=== PATIENT | male | born 1965 | race Caucasian/White ===

== ENCOUNTER 2020-09-08 10:51 | Emergency (ER) | payer OTHER ==
[2020-09-08] MEDS ORDERED: ACETAMINOPHEN WITH CODEINE #3 TABLET PO ONE ×2 (11:54→16:54)
--- NOTE | 2020-09-08 11:56 | ER Document Report ---
ED Fall - General Stated Complaint: FALL,BACK PAIN Time Seen by Provider: 09/08/20 11:42 Primary Care Provider: [facility] [Provider Group] - Follow up as needed [facility] [Provider Group] - Follow up as needed Mode of Arrival: Medic Information source: Patient Notes: Patient states that he was stepping up onto the back of a truck and fell off of the truck landing on the tongue of the trailer. Patient with thoracic back pain. Patient denies any head injury or loss of consciousness. Patient denies any nausea or vomiting. - HPI Occurred: Just prior to arrival Where: Outdoors Context: Slipped Associated symptoms: None Location of injury/pain: Back Quality of pain: Sharp Pain Level: 5 - Related data Allergies/Adverse Reactions: Opioids - Morphine Analogues Allergy (Verified 09/08/20 16:50) Past Medical History - General Information source: Patient - Social History Smoking Status: Current Every Day Smoker Frequency of alcohol use: None Drug Abuse: None Occupation: construction Lives with: Spouse/Significant other Family History: Reviewed & Not Pertinent - Past Medical History Cardiac Medical History: Reports: Hx Hypertension Musculoskeletal Medical History: Reports Hx Arthritis Surgical Hx: Negative Review of Systems - Review of Systems Constitutional: No symptoms reported. denies: Fever EENT: No symptoms reported Cardiovascular: No symptoms reported. denies: Chest pain, Dizziness, Lightheaded Respiratory: No symptoms reported. denies: Cough, Short of breath Gastrointestinal: No symptoms reported. denies: Abdominal pain, Nausea, Vomiting Genitourinary: No symptoms reported Male Genitourinary: No symptoms reported Musculoskeletal: Back pain, Muscle pain Skin: No symptoms reported Hematologic/Lymphatic: No symptoms reported Neurological/Psychological: No symptoms reported Physical Exam - Vital signs Vitals: Temp Pulse BP Pulse Ox 98.0 F 63 124/68 96 09/08/20 11:17 09/08/20 11:17 09/08/20 11:17 09/08/20 11:17 - General General appearance: Appears well, Alert In distress: Mild - HEENT Head: Normocephalic, Atraumatic Eyes: Normal Conjunctiva: Normal Ears: Normal Nasal: Normal Mouth/Lips: Normal Neck: Normal, Supple. No: Lymphadenopathy Notes: No midline tenderness, step-off or deformity - Respiratory Respiratory status: No respiratory distress Chest status: Pain with deep breathing Breath sounds: Normal. No: Rales, Rhonchi, Stridor Chest palpation: Normal - Cardiovascular Rhythm: Regular Heart sounds: S1 appreciated, S2 appreciated - Abdominal Inspection: Normal Distension: No distension Tenderness: Nontender - Back Back: Tender - Left thoracic paraspinal tenderness, Vertebra tenderness - Thoracic tenderness T7-12 area. No: Deformity/step-off, CVA tenderness - Extremities General upper extremity: Normal inspection, Normal ROM General lower extremity: Normal inspection, Normal ROM - Neurological Neuro grossly intact: Yes Cognition: Normal Elmer Coma Scale Eye Opening: Spontaneous Shira Coma Scale Verbal: Oriented Shira Coma Scale Motor: Obeys Commands Elmer Coma Scale Total: 15 - Psychological Associated symptoms: Normal affect, Normal mood - Skin Skin Temperature: Warm Skin Moisture: Dry Skin Color: Normal Course - Re-evaluation Re-evalutation: 09/08/20 14:[address] scan reviewed, patient with mild superior endplate compression at T7 that does not appear to be acute. Patient does acknowledge a long history of ch ronic back pain. Consulted with Dr. Barrientos who did evaluate patient, recommends note for patient's job, pain control and outpatient follow-up with orthopedic spinal specialist for further management of his chronic back issues. No additional testing advised at this time. The patient presents with back pain without signs of spinal cord compression, cauda equina syndrome, infection, aneurysm, or other serious etiology. The patient is neurologically intact. Given the extremely risk of these diagnoses further testing and evaluation for these possibilities does not appear to be indicated at this time. Patient has been instructed to return if the symptoms worsen or change in any way. - Vital Signs Vital signs: Temp Pulse Resp BP Pulse Ox 98.0 F 63 124/68 96 09/08/20 11:17 09/08/20 11:17 09/08/20 11:17 09/08/20 11:17 - Laboratory Result Diagrams: 09/08/20 12:19 09/08/20 12:19 Laboratory results interpreted by me: 09/08/20 09/08/20 12:19 12:19 RBC 4.28 L Potassium 5.2 H Labs- All tests 24 hr 09/08/20 09/08/20 12:19 12:19 WBC 7.6 RBC 4.28 L Hgb 14.2 Hct 41.3 MCV 96 MCH 33.2 MCHC 34.4 RDW 12.6 Plt Count 186 Lymph % (Auto) 25.0 Casey % (Auto) 6.7 Eos % (Auto) 2.4 Baso % (Auto) 1.0 Absolute Neuts (auto) 4.9 Absolute Lymphs (auto) 1.9 Absolute Monos (auto) 0.5 Absolute Eos (auto) 0.2 Absolute Basos (auto) 0.1 Seg Neutrophils % 64.9 Sodium 138.6 Potassium 5.2 H Chloride 105 Carbon Dioxide 26 Anion Gap 8 BUN 19 Creatinine 0.77 Est GFR ( Amer) > 60 Est GFR (MDRD) Non-Af > 60 Glucose 103 Calcium 9.6 - Diagnostic Test Radiology reviewed: Reports reviewed Discharge - Discharge Clinical Impression: Upper back pain on left side Fall Qualifiers: Encounter type: initial encounter Qualified Code(s): W19.XXXA - Unspecified fall, initial encounter Condition: Stable Disposition: HOME, SELF-CARE Instructions: Chronic Back Pain ([facility]), Ice Packs ([facility]), Oral Narcotic Medication ([facility]), Upper Back Strain ([facility]) Additional Instructions: Return immediately for any new or worsening symptoms Followup with your primary care provider, call tomorrow to make a followup appointment Follow-up with orthopedic spinal specialist for further evaluation. You may need follow-up with pain management Prescriptions: Acetaminophen with Codeine [Tylenol #3 Tablet] 1 each PO Q6HP PRN #15 tablet PRN Reason: Lidocaine [Lidoderm 5% (700 mg) Transdermal Patch] 1 patch TP DAILY PRN #10 adh..patch PRN Reason: Methocarbamol [Robaxin 500 Mg Tablet] 500 mg PO QID PRN #30 tablet PRN Reason: Forms: Return to Work Referrals: [facility] [Provider Group] - Follow up as needed [facility] [Provider Group] - Follow up as needed
[2020-09-08 12:41] LABS: ABSOLUTE BASOPHILS # (AUTO) 0.1 10^3/uL (0.0-0.2); ABSOLUTE EOSINOPHILS # (AUTO) 0.2 10^3/uL (0.0-0.6); ABSOLUTE LYMPHOCYTES (AUTO) 1.9 10^3/uL (0.5-4.7); ABSOLUTE MONOCYTES (AUTO) 0.5 10^3/uL (0.1-1.4); ABSOLUTE NEUT (AUTO) 4.9 10^3/uL (1.7-8.2); EOSINOPHILS % (AUTO) 2.4 % (0-6); HEMATOCRIT 41.3 % (37.9-51.0); HEMOGLOBIN 14.2 g/dL (13.5-17.0); MEAN CORPUSCULAR HEMOGLOBIN 33.2 pg (27.0-33.4); MEAN CORPUSCULAR HGB CONC 34.4 g/dL (32.0-36.0); MEAN CORPUSCULAR VOLUME 96 fl (80-97); MONOCYTES % (AUTO) 6.7 % (3-13); PLATELET COUNT 186 10^3/uL (150-450); RED BLOOD COUNT 4.28 10^6/uL (4.35-5.55); RED CELL DISTRIBUTION WIDTH 12.6 % (11.5-14.0); SEGMENTED NEUTROPHILS % (AUTO) 64.9 % (42-78); TOTAL CELLS COUNTED % (AUTO) 100 %; WHITE BLOOD COUNT 7.6 10^3/uL (4.0-10.5)
[2020-09-08 13:02] LABS: ANION GAP 8 (5-19); BLOOD UREA NITROGEN 19 mg/dL (7-20); CALCIUM 9.6 mg/dL (8.4-10.2); CARBON DIOXIDE 26 mmol/L (22-30); CHLORIDE 105 mmol/L (98-107); GLUCOSE 103 mg/dL (75-110); POTASSIUM 5.2 mmol/L (3.6-5.0)
--- NOTE | 2020-09-08 14:01 | RADIOLOGY REPORT (SQ) ---
EXAM DESCRIPTION: CT CHEST WITH IMAGES COMPLETED DATE/TIME: 09/08/2020 1:45 pm REASON FOR STUDY: fall off truck, thoracic back pain, L post rib ara COMPARISON: None. TECHNIQUE: CT scan of the chest performed using helical scanning technique with dynamic intravenous contrast injection. Images reviewed with lung, soft tissue and bone windows. Reconstructed coronal and sagittal MPR and MIP images reviewed. All images stored on PACS. All CT scanners at this facility use dose modulation, iterative reconstruction, and/or weight based d osing when appropriate to reduce radiation dose to as low as reasonably achievable (ALARA). [facility]: Dose Right [facility]: CareDose [facility]: Dose Right [facility]: Teradose 4D [facility]: [employer] CONTRAST TYPE AND DOSE: contrast/concentration: Isovue 350.00 mmol/ml; Total Contrast Delivered: 80. 0 ml; Total Saline Delivered: 38.3 ml RENAL FUNCTION: Not recorded here. Refer to the technologist's notes. RADIATION DOSE: CT Rad equipment meets quality standard of care and radiation dose reduction techniq ues were employed. CTDIvol: 16.4 mGy. DLP: 716 mGy-cm. . LIMITATIONS: None. FINDINGS: LUNGS AND PLEURA: There are some small emphysematous blebs in the upper lobes. No pneumot horax. No acute infiltrate or effusion. HILAR AND MEDIASTINAL STRUCTURES: No identified masses or abnormal nodes. HEART AND VASCULAR STRUCTURES: No aneurysm or dissection. No central pulmonary emboli. No pericardi al effusion. HARDWARE: None in the chest. UPPER ABDOMEN: No significant findings. Limited exam. THYROID AND OTHER SOFT TISSUES: No masses. No adenopathy. BONES: Mild superior endplate compression at T7 there is not appear particularly acute. OTHER: No other significant finding. IMPRESSION: Mild emphysematous changes. No pneumothorax. Mild superior endplate compression at T7 does not appear particularly acute. TECHNICAL DOCUMENTATION: JOB ID: [id number] Quality ID # [id number]: Final reports with documentation of one or more dose reduction techniques (e.g., Au tomated exposure control, adjustment of the mA and/or kV according to patient size, use of iterative reconstruction technique) 2010 [employer]- All Rights Reserved Reading location - IP/workstation name: [email or web address]
--- NOTE | 2020-09-08 14:45 | ER Document Report ---
Doctor's Note Notes: 09/08/20 14:42 This is a 55-year-old male with a low back injury I was asked to evaluate along with midlevel provider. 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 Since then he has had localized pain in his mid to lower back. He has no focal neurologic symptoms. He has no impairment of bladder function. Patient reports that he has had a long-term history of chronic/recurrent low back problems since his mid 20s. He has been told he has sciatica in the past. He currently takes medications on a as needed basis. He is followed by primary care doctor is also seen a online merchandising specialist in the past although is unable to recall name of this physician. I have reviewed the patient's record including report of his CT scan and performed a brief examination at the bedside. This is a gentleman approximately stated age appears in moderate discomfort. He is tender to palpation over his head and lower back area in the midline with no obvious step-off or crepitus. There is no focal neurologic deficit appreciated. His pain is aggravated with movement and turning. His straight leg raising test is negative. His distal sensation motor function and reflexes all are intact. CT scan suggested a possible superior endplate fracture at about T12 level the radiologist question whether this was an old injury. Patient says he is actually been made aware of this abnormality previously and so I suspect this is nonacute. Current symptoms appear primarily to be due to soft tissue contusion. I recommended conservative management with analgesics, muscle relaxer and ice packs. He should receive a 3-day work note initially and be referred to primary care physician and/or online merchandising specialist prior to being asked to return to work.
[2020-09-08] MEDS ORDERED: LIDOCAINE 5% (700 MG) TRANSDERMAL ADH..PATCH TP ONE (16:54)
[2020-09-08 19:55] VITALS: BP 128/74
== END 2020-09-08 17:30 | disposition home or self-care (01) ==
LOC: ER 10:51
DX: M54.6 Pain in thoracic spine (principal); M54.9 Dorsalgia, unspecified; W19.XXXA Unspecified fall, initial encounter; Z88.8 Allergy status to other drugs, medicaments and biological substances; F17.200 Nicotine dependence, unspecified, uncomplicated; I10 Essential (primary) hypertension
CPT/HCPCS: 36415; 71260; 80048; 85025; 99285